=== PATIENT | male | born 1955 | race Caucasian/White ===

== ENCOUNTER → 2017-11-11 | Outpatient (CLI) | payer OTHER ==
[2015-07-05 15:09] VITALS: BP 128/87
[~2017-11-11] MED LIST: DILTIAZEM ER240 M2 PO; MEDI-FIRST ASP325 MG PO; METOPROLOL SUCC25 M1 PO; ZANTAC
== END ==
LOC: RAD 10:34
DX: M51.36 Other intervertebral disc degeneration, lumbar region (principal)

== ENCOUNTER → 2017-12-02 | Outpatient (CLI) | payer OTHER ==
[2015-07-05 15:09] VITALS: BP 128/87
== END ==
LOC: RAD 11:07
DX: M51.36 Other intervertebral disc degeneration, lumbar region (principal); M51.26 Other intervertebral disc displacement, lumbar region; M54.16 Radiculopathy, lumbar region; M48.061 Spinal stenosis, lumbar region without neurogenic claudication; M43.07 Spondylolysis, lumbosacral region; Z72.0 Tobacco use; I10 Essential (primary) hypertension; Z87.39 Personal history of other diseases of the musculoskeletal system and connective tissue

== ENCOUNTER 2017-12-04 09:30 | Outpatient (RCR) | payer OTHER ==
[2015-07-05 15:09] VITALS: BP 128/87
== END 2017-12-04 10:00 | disposition home or self-care (01) ==
LOC: PT 09:30
DX: M54.41 Lumbago with sciatica, right side (principal); M51.36 Other intervertebral disc degeneration, lumbar region; Y92.39 Other specified sports and athletic area as the place of occurrence of the external cause; Y93.H9 Activity, other involving exterior property and land maintenance, building and construction; Y99.0 Civilian activity done for income or pay; Z87.39 Personal history of other diseases of the musculoskeletal system and connective tissue

== ENCOUNTER → 2017-12-13 | Outpatient (CLI) | payer OTHER ==
[2015-07-05 15:09] VITALS: BP 128/87
[2017-12-13 09:50] LABS: HEMATOCRIT 46.2 % (42.0-52.0); HEMOGLOBIN 15.8 g/dL (13.5-18.0); MEAN CELL VOLUME 97 fl (78-100); MEAN CORPUSCULAR HEMOGLOBIN 33 pg (27-31); MEAN CORPUSCULAR HGB CONC 34 g/dL (33-37); MEAN PLATELET VOLUME 9.8 fl (7.4-10.4); PLATELET COUNT 302 K/mm3 (130-400); RED BLOOD COUNT 4.79 M/mm3 (4.20-5.60); RED CELL DISTRIBUTION WIDTH 12.8 % (11.5-14.5); WHITE BLOOD COUNT 8.4 K/mm3 (4.8-10.8)
[2017-12-13 10:15] LABS: BUN/CREATININE RATIO 13.2 (6.0-26.0); CALCIUM 9.6 mg/dL (8.4-10.2); POTASSIUM 4.4 mmol/L (3.6-5.0)
[2017-12-13 10:18] LABS: PARTIAL THROMBOPLASTIN TIME 22.7 SECONDS (21.0-32.0); PROTHROMBIN TIME 9.1 SECONDS (9.0-12.0)
[2017-12-13 10:45] LABS: LYMPHOCYTE 26 % (20-51); MONOCYTE 6 % (3-10); NEUTROPHILS 62 % (42-75)
[2017-12-13 11:05] LABS: URINE APPEARANCE CLEAR; URINE BILIRUBIN NEGATIVE (NEGATIVE); URINE BLOOD NEGATIVE (NEGATIVE); URINE COLOR YELLOW; URINE GLUCOSE NEGATIVE (NEGATIVE); URINE KETONE NEGATIVE (NEGATIVE); URINE LEUKOCYTE ESTERASE NEGATIVE (NEGATIVE); URINE NITRATE NEGATIVE (NEGATIVE); URINE PROTEIN(semi-quant) TRACE mg/dL (NEGATIVE); URINE UROBILINOGEN NORMAL (NORMAL)
[2017-12-13 11:06] LABS: URINE MUCUS PRESENT (NOT PRESENT)
== END ==
LOC: LAB 09:35
DX: M48.062 Spinal stenosis, lumbar region with neurogenic claudication (principal); M51.16 Intervertebral disc disorders with radiculopathy, lumbar region

== ENCOUNTER → 2018-02-05 | Outpatient (CLI) | payer OTHER ==
[2015-07-05 15:09] VITALS: BP 128/87
== END ==
LOC: RAD 14:26
DX: M79.661 Pain in right lower leg (principal); R22.41 Localized swelling, mass and lump, right lower limb